=== PATIENT | female | born 1975 | race African-American/Black ===

== ENCOUNTER 2020-12-17 17:13 | Emergency (ER) | payer OTHER ==
[2020-12-17 17:20] VITALS: TEMP 97.1; BMI 49.7
[2020-12-17 19:47] LABS: BASO % 0.8 % (0-2.0); HEMATOCRIT 34.2 % (32.4-45.2); HEMOGLOBIN 10.6 GM/dL (10.7-15.3); LYMPH % 22.9 % (8-40); MCH 21.2 pg (25.7-33.7); MCHC 30.9 g/dl (32.0-36.0); MEAN CELL VOLUME 68.5 fl (80-96); MEAN PLT VOLUME 8.3 fl (7.5-11.1); MONO % 7.5 % (3.8-10.2); NEUT % 64.8 % (42.8-82.8); PLATELET COUNT 352 10^3/uL (134-434); RDW 19.3 % (11.6-15.6); WHITE BLOOD COUNT 9.8 K/mm3 (4.0-10.0)
[2020-12-17 19:53] LABS: CHLORIDE 104 mmol/L (98-107); SODIUM 136 mmol/L (136-145)
[2020-12-17 19:55] LABS: CALCIUM 9.2 mg/dL (8.5-10.1)
[2020-12-17 19:56] LABS: ALBUMIN 3.6 g/dl (3.4-5.0); ANION GAP 7 MMOL/L (8-16); BLOOD UREA NITROGEN 17.2 mg/dL (7-18); CO2 26 mmol/L (21-32); GLUCOSE,RANDOM 202 mg/dL (74-106)
[2020-12-17 19:59] LABS: CHOLESTEROL 149 mg/dL (50-200); SGOT/AST 9 U/L (15-37); SGPT/ALT 17 U/L (13-61); TRIGLYCERIDES 127 mg/dL (0-150)
[2020-12-17 20:00] LABS: BILIRUBIN,TOTAL 0.2 mg/dL (0.2-1); LDL CHOLESTEROL (ONLY SJRH) 84 mg/dL (5-100)
[2020-12-17 20:01] LABS: HDL CHOLESTEROL 47 mg/dL (40-60)
[2020-12-17 20:02] LABS: ALK PHOS 72 U/L (45-117)
[2020-12-17] MEDS ORDERED: ACETAMINOPHEN 500 MG TABLET (FP) PO ONE (20:27)
[2020-12-17] MEDS ORDERED: ACETAMINOPHEN 500 MG TABLET (FP) ONE (20:48)
[2020-12-17 21:41] LABS: ANISOCYTOSIS 1+; MACROCYTOSIS 0; PLATELET ESTIMATE NORMAL
[2020-12-17 22:23] VITALS: BP 170/84; PULSE 84
== END 2020-12-17 22:23 | disposition home or self-care (01) ==
LOC: JER 17:13
DX: I10 Essential (primary) hypertension (principal)
CPT/HCPCS: 36415; 70450-TC; 80053; 80061; 82550; 83036; 83721; 84443; 84484; 85025; 93005; 93010; 99284-25

== ENCOUNTER 2021-11-10 18:21 | Emergency (ER) | payer OTHER ==
[2021-11-10 18:38] VITALS: BP 139/85; PULSE 80; TEMP 98; BMI 47.2
== END 2021-11-10 21:08 | disposition home or self-care (01) ==
LOC: JER 18:21
DX: R05.9 Cough, unspecified (principal); R50.9 Fever, unspecified; Z20.822 Contact with and (suspected) exposure to COVID-19
CPT/HCPCS: 0241U-QW; 71046-TC-FY; 99284-25